=== PATIENT | male | born 2000 | race Caucasian/White ===

== ENCOUNTER 2023-08-04 09:42 | Day surgery (SDC) | payer OTHER ==
[~2023-08-04] VITALS: Ht 182.9 cm; Wt 64.0 kg
[2023-08-04 09:56] VITALS: BP 127/72
[2023-08-04] MEDS ORDERED: PREVACID15 M1 PO (10:01)
--- NOTE | 2023-08-04 12:59 | NUR ---
08/04/23 1259 Sheets,Ary 1255 PT ARRIVED TO PACU ON 3L VIA NC, O2 TURNED OFF. PT AWAKE AND TALKING TO RN. PT DENIES CONCERNS.
[2023-08-04 13:21] VITALS: BP 110/67
--- NOTE | 2023-08-04 21:59 | OR ---
[facility] [address], [place] [address] Signed DATE OF OPERATION: 08/04/2023 SURGEON: Alistair Barnard MD PREOPERATIVE DIAGNOSES: 1. Chronic nausea and weight loss. 2. Negative gallbladder ultrasound and upper endoscopy showing small hiatal hernia. POSTOPERATIVE DIAGNOSIS: Normal-appearing colon and ileum. PROCEDURES: Total colonoscopy to cecum with intubation of ileum and biopsies of ileum and colon. ANESTHESIA: Intravenous sedation, fentanyl 200 mcg and Versed 10 mg (total). INDICATION: This 22-year-old white man is a patient Dr. Sol. He has had a number of months of progressive weight loss for reasons that are unclear. He has had nausea and vomiting, not always associated with meals. He has no family history of similar symptoms. He has no associated diarrhea or constipation. A gallbladder ultrasound was performed, which was negative. He has been empirically treated by Dr. Sol with PPI medication (Prevacid), which has shown some benefit, but not complete resolution of his symptoms. Additionally, he has noted that alcohol use has been significantly problematic and he discontinued that as well as other dietary interventions including avoidance of soda pop and junk food with no actual improvement. I have ordered for him to have a celiac disease panel as well as H pylori titer and other lab studies, which he has not yet completed. He is admitted at this time to undergo upper endoscopy and colonoscopy to better characterize this problem and in particular to assess for Crohn disease or other similar problem. The risk of bleeding, infection, and perforation related to upper endoscopy and colonoscopy were reviewed with him. He understands and wished to proceed. FINDINGS: Upper endoscopy was essentially normal except for a small hiatal hernia. The mucosa of the esophagus was entirely normal. CLOtest was negative. On colonoscopy, the prep was quite good. Complete colonoscopy was undertaken to the Electronically Signed By: ALISTAIR BARNARD MD 08/04/23 2159 PATIENT NAME: KRISTINA SANCHEZ OPERATIVE REPORT DATE OF : 00 REPORT #: [id number] PHYSICIAN: ALISTAIR BARNARD MD PCP: SAMMI SOL MD REPORT IS CONFIDENTIAL AND NOT TO BE RELEASED WITHOUT AUTHORIZATION [facility] [address], [place] [address] Signed cecum. An intubation of the ileum for at least 10 cm was accomplished as well. There was no evidence of terminal ileitis or Crohn disease otherwise and no sign of colitis, neoplasm, diverticular formation, other issue. PROCEDURE IN DETAIL: The patient was brought to the endoscopy suite and placed in lateral decubitus position after undergoing topical lidocaine hypopharyngeal anesthesia. He was given intravenous sedation with full cardiopulmonary monitoring. A bite block was placed. An Olympus video upper endoscope was passed in the hypopharynx. Vocal cords appeared normal. Scope was easily advanced to the esophagus and appeared normal on first evaluation. The scope was passed to the stomach, which was insufflated with air. There was no sign of bilious fluid within the stomach. Rugal folds were normal as was the antrum and pylorus. The scope was passed through the pylorus into the duodenum, which was normal. The scope was passed as far as possible likely encountering the proximal jejunum and biopsies were obtained and additional biopsies of the duodenum proper. The scope was withdrawn into the stomach and biopsies taken of the antrum for both MADINA and pathologic testing. Retroflexed view was undertaken showing a small hiatal hernia, but no other abnormality. There was certainly no neoplasm or diffuse gastritis. The scope was withdrawn to the distal esophagus and although all normal in appearance, biopsies were obtained. Further withdrawal showed no other abnormality. Plans were then made for colonoscopy. Additional sedation was given as appropriate. Digital rectal examination was normal. An Olympus video colonoscope was passed in the rectum and manipulated throughout the colon and ultimately intubating the cecum itself. The ileocecal valve and appendiceal orifice were normal. With various manipulations, the slit-like ileocecal valve was intubated. The scope was passed several centimeters at least 10 and possibly more showing normal ileal mucosa. Biopsies were obtained. The scope was withdrawn and biopsies then taken of the right colon. Further withdrawal showed no other abnormality. Biopsies were taken of the transverse colon as well as the left colon and rectosigmoid. Retroflexed view was normal. The scope was removed and the patient was taken to recovery room in good condition. CONCLUDING DIAGNOSIS: Small hiatal hernia without signs of esophagitis. Normal stomach and duodenum; additionally noted normal colon and ileum. PLAN: This may represent biliary problem without stones (acalculous cholecystitis). I would advocate a CCK-HIDA test be undertaken and if negative, consideration for CT scan of the abdomen. He will return to see me in 2 weeks after CCK-HIDA test is completed. I encouraged him also to conclude the tests that have been ordered including the chem profile, CBC, celiac panel, and others. Electronically Signed By: ALISTAIR BARNARD MD 08/04/23 4136 PATIENT NAME: KRISTINA SANCHEZ OPERATIVE REPORT DATE OF : 00 REPORT #: [id number] PHYSICIAN: ALISTAIR BARNARD MD PCP: SAMMI SOL MD REPORT IS CONFIDENTIAL AND NOT TO BE RELEASED WITHOUT AUTHORIZATION [facility] [address] [facility] [place], [place] [address] Signed MD VICK Medrano/MODL /[id number] cc: Sammi Sol MD Copies: ~ Electronically Signed By: ALISTAIR BARNARD MD 08/04/23 2159 PATIENT NAME: KRISTINA SANCHEZ OPERATIVE REPORT DATE OF : 00 REPORT #: [id number] PHYSICIAN: ALISTAIR BARNARD MD PCP: SAMMI SOL MD REPORT IS CONFIDENTIAL AND NOT TO BE RELEASED WITHOUT AUTHORIZATION
--- NOTE | 2023-08-07 12:13 | PATH ---
[facility] [address] [place] [place] [address] Signed SPECIMEN(S): A DUODENAL BIOPSY SPECIMEN(S): B ANTRUM/ANTRAL BIOPSY SPECIMEN(S): C LOWER ESOPHAGEAL BIOPSY SPECIMEN(S): D MIDDLE ESOPHAGEAL BIOPSY SPECIMEN(S): E TERMINAL ILEUM BIOPSY SPECIMEN(S): F CECUM COLON BIOPSY SPECIMEN(S): G TRANSVERSE COLON BIOPSY SPECIMEN(S): H DESCENDING/LEFT COLON BIOPSY SPECIMEN(S): I RECTUM SPECIMEN SOURCE: A. DUODENAL BIOPSY B. ANTRUM/ANTRAL BIOPSY C. LOWER ESOPHAGEAL BIOPSY D. MIDDLE ESOPHAGEAL BIOPSY E. TERMINAL ILEUM BIOPSY F. CECUM COLON BIOPSY G. TRANSVERSE COLON BIOPSY H. DESCENDING/LEFT COLON BIOPSY I. RECTUM CLINICAL HISTORY: Weight loss, N/V, abdominal pain. FINAL PATHOLOGIC DIAGNOSIS: A. Duodenal biopsy: - Benign duodenal mucosa, negative for specific diagnostic abnormality. - Preserved villous architecture, negative for increased epithelial lymphocytes. - Benign gastric mucosa, negative for evidence of Helicobacter organisms on routine HE stained sections. B. Antrum/antral biopsy: - Benign gastric mucosa with slight chronic inflammation. - Negative for evidence of Helicobacter organisms on routine HE stained sections. C. Lower esophageal biopsy: - Benign esophageal mucosa, negative for increased epithelial eosinophils. - Negative for glandular mucosa. D. Middle esophageal biopsy: - Benign esophageal mucosa, negative for increased epithelia eosinophils. E. Terminal ileum, biopsy: PATIENT NAME: KRISTINA SANCHEZ [facility] DATE OF : 00 REPORT #: [id number] PHYSICIAN: MADELAINE PATHOLOGY PCP: YEFRI DOHERTY MD REPORT IS CONFIDENTIAL AND NOT TO BE RELEASED WITHOUT AUTHORIZATION [facility] [address] [place], [place] [address] Signed - Benign small bowel type mucosa, negative for specific diagnostic abnormality. F. Cecum colon, biopsy: - Benign colonic mucosa, negative for specific diagnostic abnormality. G. Transverse colon, biopsy: - Benign colonic mucosa, negative for specific diagnostic abnormality. H. Descending/left colon, biopsy: - Benign colonic mucosa, negative for specific diagnostic abnormality. I. Rectum, biopsy: - Benign colonic mucosa, negative for specific diagnostic abnormality. JVR:cml MICROSCOPIC EXAMINATION: Histologic sections of all submitted blocks are examined by light microscopy. These findings, together with the gross examination, support the pathologic diagnosis. GROSS DESCRIPTION: A. The specimen, labeled and designated "Melcher Dallas, duodenum biopsy," is received in formalin and consists of four muñoz soft tissue fragments, ranging from 0.2 cm. Entirely submitted in (A1). B. The specimen, labeled and designated "Melcher Dallas, antrum biopsy," is received in formalin and consists of two muñoz soft tissue fragments, ranging from 0.2 cm. Entirely submitted in (B1). C. The specimen, labeled and designated "Melcher Dallas, lower esophagus biopsy," is received in formalin and consists of one muñoz soft tissue fragment, 0.4 cm. Entirely submitted in (C1). D. The specimen, labeled and designated "Melcher Dallas, middle esophagus biopsy," is received in formalin and consists of three muñoz soft tissue fragments, ranging from 0.1-0.2 cm. Entirely submitted in (D1). E. The specimen, labeled and designated "Josey, terminal ileum biopsy," is received in formalin and consists of three muñoz soft tissue fragments, ranging from 0.2-0.3 cm. Entirely submitted in (E1). F. The specimen, labeled and designated "Josey, cecum biopsy," is received in formalin and consists of two muñoz soft tissue fragments, ranging from 0.2-0.3 cm. Entirely submitted in (F1). G. The specimen, labeled and designated "Melcher Dallas, transverse colon biopsy," is received in formalin and consists of two muñoz soft tissue fragments, ranging from 0.2-0.3 cm. Entirely submitted in (G1). PATIENT NAME: KRISTINA SANCHEZ PATHOLOGY DATE OF : 00 REPORT #: [id number] PHYSICIAN: MADELAINE ULLOA PCP: YEFRI DOHERTY MD REPORT IS CONFIDENTIAL AND NOT TO BE RELEASED WITHOUT AUTHORIZATION [facility] [address], [place] [address] Signed H. The specimen, labeled and designated "Melcher Dallas, descending colon biopsy," is received in formalin and consists of two muñoz soft tissue fragments, ranging from 0.2-0.3 cm. Entirely submitted in (H1). I. The specimen, labeled and designated "Melcher Dallas, rectum biopsy," is received in formalin and consists of two muñoz soft tissue fragments, ranging from 0.2 cm. Entirely submitted in (I1). JS (under the direct supervision of a pathologist) The Gross Description was prepared using a voice recognition system. The report was reviewed for accuracy; however, sound-alike word errors, addition and/or deletions may occur. If there is any question about this report, please contact Client Services. PERFORMING LABORATORY: Technical component was performed by [facility], [address] [place] [id number] (CLIA# [id number]). Professional interpretation was performed by [facility], [address] [place] [id number] (CLIA#: [id number]). Diagnostician: Carrillo House MD Pathologist Electronically Signed 08/07/2023 Copies: ~ PATIENT NAME: KRISTINA SANCHEZ PATHOLOGY DATE OF : 00 REPORT #: [id number] PHYSICIAN: MADELAINE ULLOA PCP: YEFRI DOHERTY MD REPORT IS CONFIDENTIAL AND NOT TO BE RELEASED WITHOUT AUTHORIZATION
== END 2023-08-04 13:30 | disposition home or self-care (01) ==
LOC: OPS 09:42 → DS 09:44 → OPS 11:15 → DS 11:15 → OPS 13:30
PROVIDERS: ATTEND Surgery
PROC: 0DBL8ZX Excision of Transverse Colon, Via Natural or Artificial Opening Endoscopic, Diagnostic (ICD-10-PCS; 2023-08-04)
PROC: 0DB98ZX Excision of Duodenum, Via Natural or Artificial Opening Endoscopic, Diagnostic (ICD-10-PCS; principal; 2023-08-04 11:15)
PROC: 0DBF8ZX Excision of Right Large Intestine, Via Natural or Artificial Opening Endoscopic, Diagnostic (ICD-10-PCS; 2023-08-04 11:15)
DX: K29.50 Unspecified chronic gastritis without bleeding (principal); R63.4 Abnormal weight loss; K44.9 Diaphragmatic hernia without obstruction or gangrene
CPT/HCPCS: 99153; G0500; J2250; J3010; J7121